=== PATIENT | male | born 1975 | race Hispanic/Latino ===

== ENCOUNTER 2023-03-03 18:00 | Emergency (ER) | payer OTHER ==
[~2023-03-03] VITALS: Ht 172.7 cm; Wt 144.0 kg
[2023-03-03] MEDS ORDERED: ATOR1TAB21 PO (18:18)
[2023-03-03] MEDS ORDERED: AMLO1TAB25 PO (18:18)
[2023-03-03] MEDS ORDERED: LOSA25TA13 PO (18:18)
[2023-03-03] MEDS ORDERED: ECOT81TA5 PO (18:18)
[2023-03-03 18:59] LABS: BASO # 0.1 10^3/uL (0.0-0.2); BASO % 0.3 % (0.0-1.0); CK-MB VALUE MASS < 1.0 NG/ML (<3.6); EOS % 0.3 % (0.0-3.0); HEMOGLOBIN 14.8 g/dl (13.5-17.5); LYMPH # 1.5 10^3/uL (1.5-5.0); LYMPH % 10.2 % (24.0-44.0); MEAN CORPUSCULAR HEMOGLOBIN 27.5 pg (27.0-33.0); MEAN CORPUSCULAR HGB CONC 32.9 g/dl (32.0-36.5); MEAN CORPUSCULAR VOLUME 83.5 fl (80.0-96.0); MONO # 0.7 10^3/uL (0.0-0.8); MONO % 4.3 % (2.0-8.0); NEUTROPHILS # 12.7 10^3/uL (1.5-8.5); NEUTROPHILS % 84.6 % (36.0-66.0); PLATELET COUNT, AUTOMATED 217 10^3/uL (150-450); RED BLOOD COUNT 5.39 10^6/uL (4.30-6.10)
[2023-03-03 19:01] LABS: BLOOD UREA NITROGEN 10 MG/DL (9-23); CALCIUM LEVEL 8.7 MG/DL (8.5-10.1); CARBON DIOXIDE LEVEL 24 MMOL/L (20-31); CHLORIDE LEVEL 105 MMOL/L (98-107); CPK CREATINE PHOSPHOKINASE 169 U/L (46-171); CREATININE FOR GFR 0.65 MG/DL (0.70-1.30); GLOMERULAR FILTRATION RATE > 60.0 (>60); GLUCOSE, FASTING 105 MG/DL (60-100); MB/CK RELATIVE INDEX 0.59 (< OR =4); POTASSIUM SERUM 3.9 MMOL/L (3.5-5.1); SODIUM LEVEL 138 MMOL/L (136-145)
[2023-03-03 19:50] LABS: MB/CK RELATIVE INDEX 0.59 (< OR =4)
[2023-03-03] MEDS ORDERED: NITROGLYCERIN 0.4MG SUBL TABLET SL PRN (19:55)
[2023-03-03] MEDS ORDERED: ISOVUE-370 76% 100ML VIAL As Ordered ONE (19:59)
[2023-03-03 21:36] LABS: MB/CK RELATIVE INDEX 0.55 (< OR =4)
[2023-03-03 22:48] VITALS: TEMP 99
[2023-03-04 00:25] VITALS: BP 160/88; O2SAT 100
== END 2023-03-04 00:30 | disposition home or self-care (01) ==
LOC: EDBD 18:00 → M ED 18:00
DX: R07.9 Chest pain, unspecified (principal); I44.7 Left bundle-branch block, unspecified; E66.9 Obesity, unspecified; I10 Essential (primary) hypertension; E78.5 Hyperlipidemia, unspecified; R73.03 Prediabetes; Z79.899 Other long term (current) drug therapy; Z79.82 Long term (current) use of aspirin
CPT/HCPCS: 36415; 70450; 70544; 70551; 71045; 71275; 80048; 82550; 82553; 84484; 85025; 87486; 87581; 87633; 87798; 93005; 93041; 94760; 99285; Q9967